=== PATIENT | male | born 1975 | race Caucasian/White ===

== ENCOUNTER 2024-11-15 16:46 | Inpatient (IN) | payer OTHER ==
[2024-11-15] MEDS ORDERED: Sodium Chloride 0.9% 2.5 ML Syringe FLUSH PRN (17:26)
[2024-11-15] MEDS ORDERED: Sodium Chloride 0.9% 10 ML Syringe FLUSH PRN (17:26)
[2024-11-15 17:33] LABS: BASOPHILS ABSOLUTE AUTO 0.07 K/uL (0.00-0.20); BASOPHILS PERCENT AUTO 0.7 % (0.0-1.0); EOSINOPHILS ABSOLUTE AUTO 1.17 K/uL (0.00-0.45); EOSINOPHILS PERCENT AUTO 12.3 % (0.0-6.0); HEMATOCRIT 43.3 % (42.0-52.0); HEMOGLOBIN 14.6 g/dL (14.0-18.0); IMMATURE GRAN ABSOLUTE AUTO 0.03 K/uL (0.00-0.05); IMMATURE GRAN PERCENT AUTO 0.3 % (0.0-0.4); LYMPHOCYTES ABSOLUTE AUTO 1.66 K/uL (1.00-4.80); LYMPHOCYTES PERCENT AUTO 17.4 % (24.0-44.0); MEAN CORPUSCULAR HEMOGLOBIN 28.6 pg (28.0-32.0); MEAN CORPUSCULAR HGB CONC 33.7 g/dL (32.0-36.0); MEAN CORPUSCULAR VOLUME 84.9 fL (83.0-99.0); MONOCYTES ABSOLUTE AUTO 0.96 K/uL (0.00-0.80); MONOCYTES PERCENT AUTO 10.1 % (0.0-8.0); NEUTROPHILS ABSOLUTE AUTO 5.63 K/uL (1.80-7.70); NEUTROPHILS PERCENT AUTO 59.2 % (41.0-71.0); PLATELET COUNT,PLT 243 K/uL (150-400); WHITE BLOOD CELL COUNT,WBC 9.52 K/uL (3.9-11.3)
[2024-11-15 17:44] LABS: ALBUMIN 3.5 g/dL (3.4-5.0); BILIRUBIN TOTAL 0.6 mg/dL (0.2-1.0); CALCIUM 9.7 mg/dL (8.5-10.1); CARBON DIOXIDE,CO2 24.6 mmol/L (21.0-32.0); EST CRCL DRUG DOSING (CG) 20.05 mL/min; POTASSIUM,K 4.3 mmol/L (3.5-5.1); PROTEIN TOTAL,TP 6.9 g/dL (6.4-8.2)
[2024-11-15] MEDS: Sodium Chloride 0.9% 3,000 ML IV ONE (18:31)
[2024-11-15 18:43] LABS: LACTIC ACID 1.6 mmol/L (0.4-2.0)
[2024-11-15] MEDS: Lactated Ringers 1,000 ML IV SCH (19:36)
[2024-11-15 19:44] LABS: APPEARANCE,URINE CLEAR; BILIRUBIN,URINE NEGATIVE (NEGATIVE); COLOR,URINE YELLOW; GLUCOSE,URINE NEGATIVE (NEGATIVE); KETONES,URINE 15 mg/dL (NEGATIVE); LEUKOCYTE ESTERASE,URINE NEGATIVE (NEGATIVE); NITRITE,URINE NEGATIVE (NEGATIVE); OCCULT BLOOD,URINE TRACE-INTACT (NEGATIVE); PROTEIN,URINE TRACE mg/dL (NEGATIVE); UROBILINOGEN,URINE 0.2 EU/dL (<2.0)
[2024-11-15 20:06] LABS: BACTERIA,URINE FEW (NEGATIVE); EPITHELIAL CELLS,URINE RARE (NONE-FEW); RBC,URINE 0-1 (0-2/HPF)
[2024-11-15] MEDS ORDERED: Lactated Ringers 1,000 ML IV SCH (20:15)
[2024-11-15] MEDS ORDERED: Melatonin 3 MG Tab PO PRN (20:23)
[2024-11-15] MEDS ORDERED: Polyethylene Glycol 3350 Powder 17 GM Packet PO PRN (20:23)
[2024-11-15 21:29] LABS: CALCIUM 8.8 mg/dL (8.5-10.1); CARBON DIOXIDE,CO2 23.1 mmol/L (21.0-32.0); EST CRCL DRUG DOSING (CG) 25.06 mL/min; POTASSIUM,K 4.4 mmol/L (3.5-5.1)
[2024-11-16] MEDS: Lactated Ringers 1,000 ML IV SCH (02:32)
[2024-11-16 06:03] LABS: BASOPHILS ABSOLUTE AUTO 0.04 K/uL (0.00-0.20); BASOPHILS PERCENT AUTO 0.6 % (0.0-1.0); EOSINOPHILS ABSOLUTE AUTO 1.08 K/uL (0.00-0.45); EOSINOPHILS PERCENT AUTO 17.1 % (0.0-6.0); HEMATOCRIT 40.4 % (42.0-52.0); HEMOGLOBIN 13.5 g/dL (14.0-18.0); IMMATURE GRAN ABSOLUTE AUTO 0.02 K/uL (0.00-0.05); IMMATURE GRAN PERCENT AUTO 0.3 % (0.0-0.4); LYMPHOCYTES ABSOLUTE AUTO 1.02 K/uL (1.00-4.80); LYMPHOCYTES PERCENT AUTO 16.2 % (24.0-44.0); MEAN CORPUSCULAR HEMOGLOBIN 28.9 pg (28.0-32.0); MEAN CORPUSCULAR HGB CONC 33.4 g/dL (32.0-36.0); MEAN CORPUSCULAR VOLUME 86.5 fL (83.0-99.0); MEAN PLATELET VOLUME 9.6 fL (9.4-12.4); MONOCYTES ABSOLUTE AUTO 0.72 K/uL (0.00-0.80); MONOCYTES PERCENT AUTO 11.4 % (0.0-8.0); NEUTROPHILS ABSOLUTE AUTO 3.43 K/uL (1.80-7.70); NEUTROPHILS PERCENT AUTO 54.4 % (41.0-71.0); PLATELET COUNT,PLT 188 K/uL (150-400); RED BLOOD CELL COUNT 4.67 M/uL (4.52-5.90); WHITE BLOOD CELL COUNT,WBC 6.31 K/uL (3.9-11.3)
[2024-11-16 06:23] LABS: CARBON DIOXIDE,CO2 21.9 mmol/L (21.0-32.0); CREATININE 2.7 mg/dL (0.8-1.3); EST CRCL DRUG DOSING (CG) 37.12 mL/min; MAGNESIUM 1.5 mg/dL (1.8-2.4); POTASSIUM,K 4.4 mmol/L (3.5-5.1)
[2024-11-16] MEDS: Magnesium Sulfate 2 GM/50 mL 2 GM in Premix Bag 1 BAG IV ONE (09:26)
[2024-11-16] MEDS: Acetaminophen 325 MG Tab PO PRN (09:37)
[2024-11-16] MEDS: Ondansetron 4 MG/2 ML SDV IVPUSH PRN (09:46)
[2024-11-16] MEDS: Acidophilus with Citrus Pectin/L.acidophilus Tab PO SCH (11:40)
[2024-11-16] MEDS: oxyCODONE 5 MG Tab PO PRN (16:22)
[2024-11-17 08:07] LABS: CALCIUM 9.1 mg/dL (8.5-10.1); CARBON DIOXIDE,CO2 23.3 mmol/L (21.0-32.0); CREATININE 1.9 mg/dL (0.8-1.3); EST CRCL DRUG DOSING (CG) 52.75 mL/min; POTASSIUM,K 4.7 mmol/L (3.5-5.1)
== END 2024-11-17 10:35 | disposition home or self-care (01) | DRG 683 ==
LOC: MW.ED 16:46 → MW.MS 20:12
PROVIDERS: ADMIT Family Medicine; ATTEND Family Medicine
DX: N17.9 Acute kidney failure, unspecified (principal); C64.9 Malignant neoplasm of unspecified kidney, except renal pelvis; E86.0 Dehydration; E83.42 Hypomagnesemia; Z90.5 Acquired absence of kidney; Z85.841 Personal history of malignant neoplasm of brain
CPT/HCPCS: 36415; 70450; 70450-26; 71045; 71045-26; 71250; 71250-26; 74176; 74176-26; 80048; 80053; 81001; 83605; 83690; 83735; 85025; 87040; 93005; 96360; 96361; 99285-25; A9270-GY; J2405; J3475; J7030; J7120